=== PATIENT | male | born 1960 | race Caucasian/White ===

== ENCOUNTER 2018-02-28 14:37 | Emergency (ER) | payer OTHER ==
[~2018-02-28] VITALS: Ht 185.4 cm; Wt 108.9 kg
[2018-02-28] MEDS ORDERED: ASTAGRAF XL5 MG PO (15:06)
[2018-02-28] MEDS ORDERED: ENVARSUS XR0.75 MG PO (15:06)
[2018-02-28] MEDS ORDERED: ATOR10 PO (15:07)
[2018-02-28] MEDS ORDERED: GABA100 PO (15:08)
[2018-02-28] MEDS ORDERED: VITAMIN D5000 UNIT PO (15:08)
[2018-02-28] MEDS ORDERED: ASPI81CH PO (15:08)
[2018-02-28] MEDS ORDERED: Augmentin 875-1 EACH PO (15:39)
== END 2018-02-28 16:11 | disposition home or self-care (01) ==
LOC: ER 14:37
DX: S92.535B Nondisplaced fracture of distal phalanx of left lesser toe(s), initial encounter for open fracture (principal); I25.2 Old myocardial infarction; I25.10 Atherosclerotic heart disease of native coronary artery without angina pectoris; F17.200 Nicotine dependence, unspecified, uncomplicated; W04.XXXA Fall while being carried or supported by other persons, initial encounter
CPT/HCPCS: 73630; 90471; 90714; 96372; 99283-25; J0690